=== PATIENT | female | born 2000 | race Caucasian/White ===

== ENCOUNTER 2019-06-16 09:06 | Outpatient (CLI) | payer BC ==
--- NOTE | 2019-06-16 12:28 | CT ---
CT OF THE ABDOMEN AND PELVIS WITH IV CONTRAST INDICATION: Two-month history of right lower quadrant abdominal pain with abnormality seen on a were outside CT the abdomen and pelvis performed without IV or enteric contrast in [facility]. Images were unavailable for review. There is concern for possible right lower quadrant mass. COMPARISON: None FINDINGS: ABDOMEN: Lung bases: Clear Liver: No focal lesion. Gallbladder: Normal appearing. Pancreas: Normal. Adrenal glands: Normal. Spleen: Normal. Kidneys and ureters: There is a 1.3 center cyst involving the superior pole left kidney. Right kidney is normal-appearing. Vasculature: Normal. Lymph nodes:There are enlarged lymph nodes within the right lower quadrant mesentery. One of largest is seen within the right lower quadrant on image 38 of the coronal series measuring 1.3 cm. Free fluid in abdomen:No free fluid is evident. PELVIS: Small and large bowel: There is a 7.7 x 3.3 x 2.4 cm peripherally enhancing, centrally hypodense mass , adjacent to the cecal apex. There is adjacent cecal apical wall thickening. There is adjacent wall thickening involving portions of the distal ileum, near this lesion. There is inflammatory stran ding of the peritoneal fat adjacent to this mass lesion. Appendix:Not definitely seen Bladder: Normal. Rectal and perirectal soft tissues:Normal. Reproductive structures: Normal. Free fluid in pelvis: No free fluid is evident. Lymphadenopathy pelvis: No lymphadenopathy is evident. Osseous structures: No acute osseous abnormality. No destructive osteolytic or osteoblastic lesion i s identified. Soft tissues:Normal. IMPRESSION: 1. 7.7 x 3.3 x 2.4 cm peripherally enhancing inflammatory mass suspicious for phlegmon from a perfora johnnie appendicitis. There is inflammatory stranding surrounding this lesion with reactive wall thickening involving the cecal apex as well as the adjacent terminal ileum. There are suspected react mary ellen lymph nodes within the right lower quadrant mesentery. Rupture of the appendix from an underlying appendiceal mass is not entirely excluded but is felt to be less likely. 2. Left renal cyst 3. Findings were called Dr. Bergman at 12:20 PM on June 16, 2019.
== END 2019-06-16 09:07 | disposition home or self-care (01) ==
LOC: SCSCT 09:06
PROVIDERS: ATTEND Specialist
DX: R10.31 Right lower quadrant pain (principal); N28.1 Cyst of kidney, acquired; R19.07 Generalized intra-abdominal and pelvic swelling, mass and lump
CPT/HCPCS: 74177; 80053; 85025